=== PATIENT | female | born 1995 | race Caucasian/White ===

== ENCOUNTER 2024-04-12 11:39 | Emergency (ER) | payer OTHER ==
[2024-04-12 11:54] VITALS: BP 106/67; PULSE 93; RESP 18; TEMP 98.7; BMI 22.3
[2024-04-12] MEDS ORDERED: FAMOTIDINE 20 MG TABLET ONE (14:08)
[2024-04-12] MEDS ORDERED: ONDANSETRON 4 MG/2 ML VIAL ONE (14:08)
[2024-04-12] MEDS ORDERED: MAG HYDROX/AL HYDROX/SIMETH 30 ML UNIT-DOSE CUP ONE (14:08)
[2024-04-12] MEDS: ONDANSETRON 4 MG/2 ML VIAL IVPUSH ONE (14:26)
[2024-04-12] MEDS: FAMOTIDINE 20 MG TABLET PO ONE (14:26)
[2024-04-12] MEDS: MAG HYDROX/AL HYDROX/SIMETH 30 ML UNIT-DOSE CUP PO ONE (14:26)
[2024-04-12 14:38] LABS: BASO % 0.7 % (0-2.0); EOS % 0.1 % (0-4.5); HEMATOCRIT 42.7 % (32.4-45.2); HEMOGLOBIN 14.1 GM/dL (10.7-15.3); LYMPH % 36.4 % (8-40); MCH 29.1 pg (25.7-33.7); MCHC 33.1 g/dl (32.0-36.0); MEAN CELL VOLUME 87.8 fl (80-96); MONO % 9.2 % (3.8-10.2); NEUT % 53.6 % (42.8-82.8); PLATELET COUNT 262 10^3/uL (134-434); RBC 4.86 M/mm3 (3.60-5.2); RDW 13.2 % (11.6-15.6); WHITE BLOOD COUNT 4.2 K/mm3 (4.0-10.0)
[2024-04-12 15:01] LABS: POTASSIUM 4.7 mmol/L (3.5-5.1)
[2024-04-12 15:03] LABS: ALBUMIN 4.7 g/dl (3.4-5.0)
[2024-04-12 15:06] LABS: CREATININE 0.6 mg/dL (0.55-1.3)
[2024-04-12 15:08] LABS: BILIRUBIN,TOTAL 0.7 mg/dL (0.2-1); TOT PROT 8.2 g/dl (6.4-8.2)
== END 2024-04-12 16:22 | disposition home or self-care (01) ==
LOC: JER 11:39
PROC: 3E033GC Introduction of Other Therapeutic Substance into Peripheral Vein, Percutaneous Approach (ICD-10-PCS; principal; 2024-04-12)
DX: R10.13 Epigastric pain (principal); R11.2 Nausea with vomiting, unspecified; Z32.01 Encounter for pregnancy test, result positive
CPT/HCPCS: 36415; 76705-TC; 80053; 83690; 84703; 85025; 99284-25